=== PATIENT | male | born 1985 | race Caucasian/White ===

== ENCOUNTER 2018-10-03 19:45 | Emergency (ER) | payer MEDICAID, OTHER ==
[~2018-10-03] VITALS: Ht 182.9 cm; Wt 91.3 kg
[~2018-10-03 19:45] MED LIST: NO HOME MEDS; ONDA8TAB9 PO
[2018-10-03 19:47] VITALS: BP 117/68
[2018-10-03] MEDS ORDERED: proCHLORperazine 10 MG/2 ml inj IM ONE (20:20)
[2018-10-03] MEDS ORDERED: diphenhydrAMINE 50 mg/ml inj IM ONE (20:20)
== END 2018-10-03 20:40 | disposition home or self-care (01) ==
LOC: ER 19:46
DX: R51 Headache (principal); J06.9 Acute upper respiratory infection, unspecified; F15.90 Other stimulant use, unspecified, uncomplicated; F11.90 Opioid use, unspecified, uncomplicated; Z79.899 Other long term (current) drug therapy
CPT/HCPCS: 96372; 99283; J0780; J1200